=== PATIENT | male | born 2000 | race Caucasian/White ===

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

== ENCOUNTER 2022-09-18 11:34 | Emergency (ER) | payer MEDICAID, SELFPAY ==
[2022-09-18 11:38] VITALS: BP 134/74; PULSE 110; TEMP 37; O2SAT 98
--- NOTE | 2022-09-18 12:00 | ED.GENADUL_ITS ---
Discharge Plan Disposition Patient Disposition: Home Condition: Improving Discharge Details Chief Complaint: Nausea/Vomit/Diar Clinical Impression: Vomiting and diarrhea Primary Care Provider: Enedelia Moseley ED Provider: Luis E Whitman Home Meds and New Rx's Prescriptions: No Action polyethylene glycol 3350 [Miralax] 17 gram/dose powder 17 gm PO DAILY 90 Days Qty: 510 4RF Rx Instructions: do clean out - then taper daily dose according to stool consistency ondansetron 4 mg tablet,disintegrating 4 mg PO Q8H PRN PRN (Reason: nausea and vomiting) Qty: 6 0RF Discharge Instructions Instructions: Acute Diarrhea (ED) Additional Instructions: Please follow-up with your primary care physician. Please stay hydrated. Return to the emergency part for any worsening symptoms Medical Decision Making 22-year-old male presents with nausea vomiting diarrhea in the setting of eating pizza last night, nontoxic afebrile no active vomiting. Consider foodborne illness versus viral illness versus less likely cholecystitis or appendicitis; trial of fluids antiemetics loperamide. Basic labs. Reassess 14:11 patient resting comfortably feeling much better appetite is returned. No vomiting or diarrhea department. Home care instructions and return precautions given HPI General Date/Time Provider Initiated Documentation: 09/18/22 11:54 . HPI Narrative: 22-year-old male presents with nausea vomiting and diarrhea after eating pizza last night. Denies history of abdominal surgery denies abdominal pain. Related Data Home Medications Medication Instructions Recorded Confirmed polyethylene glycol 3350 17 17 gm PO DAILY 90 days #510 grams 10/21/18 09/18/22 gram/dose oral powder (Miralax) ondansetron 4 mg disintegrating 4 mg PO Q8H PRN PRN nausea and 01/27/19 09/18/22 tablet vomiting #6 tabs Previous Rx's Medication Instructions Recorded polyethylene glycol 3350 17 17 gm PO DAILY 90 days #510 grams 10/21/18 gram/dose oral powder (Miralax) ondansetron 4 mg disintegrating 4 mg PO Q8H PRN PRN nausea and 01/27/19 tablet vomiting #6 tabs Allergies Allergy/AdvReac Type Severity Reaction Status Date / Time oxycodone AdvReac Unknown Vomiting Verified 09/18/22 11:41 General Stated Complaint: Nausea/Vomit/Diar DEANGELO: 3 Review of Systems Narrative: Review of Systems Constitutional: negative Eyes: negative ENT: negative Cardiovascular: negative Respiratory: negative Gastrointestinal: Nausea vomiting diarrhea : negative Musculoskeletal: negative Skin: negative Neurologic: negative Psych: negative PFSH All Active Problems (Updated 09/18/22 @ 14:13 by Luis E Whitman MD) Vomiting and diarrhea (Acute) ADHD (attention deficit hyperactivity disorder) (Chronic) has IEP for developmental/assistive services 07/31/20-09/07/20; small group reading comprehension twice a week x 20 min Oppositional defiant disorder (Chronic) PTSD (post-traumatic stress disorder) (Chronic) followed by Dr. Cruz Sleep disturbances (Chronic) Urticaria (Chronic 09/19/15) ? viral vs strawberry exposurei- allergy eval 09/19 Medical History (Updated 09/18/22 @ 14:13 by Luis E Whitman MD) Asthma intermittent Encopresis Fracture of distal end of left radius (08/21/14) Mild intermittent asthma, uncomplicated Family History Other Diabetes PGM Personal history of malignant neoplasm mat great GM-colon Myocardial infarction mat great GM, PGF Stroke mat great GM and GF Asthma mat uncle Mother Asthma Sister Essential hypertension Social History Smoking/Tobacco Use Status: Current-Occasional Tobacco Type: e-cigarettes Second Hand Exposure: Yes Smoking risk assessment performed?: Yes Alcohol Intake: current Alcohol Intake frequency: holidays/special occasions only Drug use: Never Substance use type: does not use Education Level: high school Details: [employer] 11 grade Pets and animals: Yes Pets and animals: turtle(s) and other Details: Lizard Seatbelt use: always Helmet use: Yes Helmet use: never Water heater temp set <120 deg: Yes Fire extinguisher in home: Yes Carbon monox detector in home: Yes Firearms in home: No Do you feel safe at home: Yes Do you feel safe in your relationship?: Yes Exam Narrative Exam Narrative: Physical Examination General: alert, awake, cooperative, resting comfortably, no acute distress HEENT: normocephalic, atraumatic; PERRL, EOM intact, conjunctiva normal; no nasal discharge; moist mucous membranes, oral and pharyngeal mucosa normal, tolerating secretions Neck: supple, trachea midline; full ROM Chest: normal to inspection Respiratory: normal respiratory effort, speaking in full sentences, clear to auscultation, no wheezing, rales or rhonchi Cardiac: regular rate, regular rhythm, S1S2 intact, no murmurs rubs or gallops GI: abdomen soft, non-tender, non-distended; no palpable mass or h epatosplenomegaly Skin: no lesions, rashes or trauma appreciated Neuro: AAOx3, normal speech, moving all extremities Psych: Appropriate mood and affect Course Vital Signs Vital signs: Vital Signs Temperature 37.0 C 09/18/22 11:38 Pulse 110 H 09/18/22 11:38 Blood Pressure 134/74 09/18/22 11:38 Pulse Oximetry 98 09/18/22 11:38 Temperature 37.0 C 09/18/22 11:38 Temperature Source Oral 09/18/22 11:38 Pulse 110 H 09/18/22 11:38 Respiratory Effort Normal, Non-Labored 09/18/22 11:42 Blood Pressure 134/74 09/18/22 11:38 Blood Pressure Position Sitting 09/18/22 11:38 Pulse Oximetry 98 09/18/22 11:38 Oxygen Delivery Method Room Air 09/18/22 11:38 Oxygen Flow Rate 0 09/18/22 11:38 PAWSS Have you Been Recently Intoxicated or Drunk Within the Last 30 days?: No Have you Ever Experienced Previous Episodes of Alcohol Withdrawal?: No Have you ever Experienced Withdrawal Seizures?: No Have you ever Experienced Delirium Tremens(DT)s?: No Have you ever undergone Alcohol Rehabilitation Treatment (i.e, inpt ot outpatient treatment programs)?: No Have you ever Experienced Blackouts?: No Have you ever Combined Alcohol with other Downers within the last 90 days?: No Have you ever Combined Alcohol with any other Substance of Abuse during the last 90 days?: No Positive Blood Alcohol level on Presentation? [PCS.BAL]: No Evidence of Increased Autonomic Activity (i.e. HR>120, tremor, sweating, agitation, nausea)?: No Result: 0
[2022-09-18 12:22] LABS: Abs Immature Grans 0.05 10^3/uL (0.0-0.06); Absolute Basophil Count 0.03 10^3/uL (0.0-0.2); Absolute Neutrophil Count 14.36 10^3/uL (1.2-6.7); Basophils % 0.2; Eosinophils % 0.1; HCT 49.7 % (40.0-50.0); Immature Grans % 0.3; Lymphocytes % 3.7; MCH 30.3 pg (27.0-33.0); MCHC 34.2 % (32.0-36.0); MCV 89 fL (80-95); MPV 9.2 fL (8.0-11.0); Monocytes % 3.2; Neutrophils % 92.5; Platelet Count 239 10^3/uL (130-400); RBC 5.61 10^6/uL (4.36-5.78); RDW 12.9 % (11.8-14.1); RDW-SD 42.1 fL; WBC 15.52 10^3/uL (4.4-10.8)
[2022-09-18 12:23] LABS: Absolute Eosinophil Count 0.02 10^3/uL (0.0-0.7); Absolute Lymphocyte Count 0.57 10^3/uL (1.2-3.4)
[2022-09-18] MEDS: Loperamide 2 MG CAP 4 MG PO (12:33)
[2022-09-18] MEDS: Ondansetron 4 MG/2 ML VIAL IVP (12:33)
[2022-09-18] MEDS: Normal Saline 1,000 ML 1000 ML IV (12:34)
[2022-09-18 12:42] LABS: ALT 35 U/L (16-63); AST 19 U/L (15-37); Albumin 4.5 g/dL (3.4-5.0); Alkaline Phosphatase 149 U/L (46-116); BUN 18 mg/dL (7-18); Bilirubin, Total 0.9 mg/dL (0.2-1.0); CREATININE 0.9 mg/dL (0.70-1.30); Calcium 9.3 mg/dL (8.5-10.1); Chloride 102 mmol/L (98-107); Estimated GFR 125.39 (mL/min/1.73m2); Glucose 121 mg/dL (74-106); Potassium 3.7 mmol/L (3.5-5.1); Sodium 141 mmol/L (136-145); Total Protein 8.8 g/dL (6.4-8.2)
== END 2022-09-18 14:40 | disposition home or self-care (01) ==
PROVIDERS: Emergency Provider Emergency Medicine
DX: R19.7 Diarrhea, unspecified (principal); R11.10 Vomiting, unspecified
CPT/HCPCS: 36415; 80053; 96361; 96374; 99284; 85025; J2405

== ENCOUNTER 2023-12-18 10:30 | Emergency (ER) | payer SELFPAY ==
[2023-12-18 10:32] VITALS: BP 159/88; PULSE 97; RESP 12; TEMP 36.7; O2SAT 97
--- NOTE | 2023-12-18 10:47 | ED.GENADUL_ITS ---
Discharge Plan Disposition Patient Disposition: Home Condition: Stable Discharge Details Clinical Impression: Rash, Axilla abrasion, non-infected Primary Care Provider: Unknown,Unknown ED Provider: Ana Rosa Solis Home Meds and New Rx's Prescriptions: New clotrimazole 1 % cream 1 applic topical BID 28 Days Qty: 45 0RF Discharge Instructions Instructions: Fungal Skin Rash (DC) Additional Instructions: You were seen in the emergency department today for evaluation of a skin rash under your arm. In our department you have a full physical examination performed, and I suspect that you may be experiencing a fungal skin infection. The treatment for this is a topical cream which would place twice a day for the next 4 weeks. It can take a long time to treat fungal infections. In between cream please make sure that you are keeping the area protected, you can utilize a skin protective barrier ointment such as Vaseline, as well as gauze or dressings. If you notice that the rash is getting worse rather than better, you need to follow-up with your primary care provider to discuss next steps, and if you have evidence of infection at that time they may decide to put you on antibiotics. You can return to the emergency department if you develop a fever or chills, a large abscess, or any other symptoms that cause you concern. Thank you for allowing us to be part of your care. HPI General Date/Time Provider Initiated Documentation: 12/18/23 10:34 . Limitations to Documentation: no limitations . Information obtained by: patient and old records reviewed . HPI Narrative: HPI: This is a 23-year-old male patient presenting for evaluation of a left axillary rash. 2 days ago the patient noted irritation in his axilla, noted a red rash, states that he noticed that it hurts to put his deodorant on (uses old spice, no recent changes to deodorant or new soaps, lotions, etc.) he reports that he has not noted any rashes anywhere else on his body. No recent travel or insect exposure. States that he has not noted any fevers or chills, drainage from the area, swelling, but has noted a foul odor in his armpits. He feels that friction makes this worse, has tried placing cool cloths over to avoid friction. This is a nice lady complaint and the patient is otherwise without concerns today. Exam: Gen: Awake and alert, in no apparent distress HEENT: Non-icteric sclera Neck: Supple Lungs: No apparent respiratory distress, normal respiratory effort. CV: Appears well perfused Abdomen: Non-distended MSK: Moves 4 extremities without apparent limitation in ROM Skin: Visualized skin without rashes, cyanosis. The patient's left axilla has a red rash, semicircular in shape with central clearing and slightly raised border. The patient has no induration, surrounding redness, fluctuance. No palpable lymphadenopathy, no skin breaks. Neuro: Normal Gait, no obvious focal deficits or facial asymmetry. Speaks in full, clear sentences. Psych: Appropriate for situation. MDM: This is a 23-year-old patient, previously healthy presenting for evaluation of an axillary rash. My differential includes but is not limited to abrasion, fungal skin infection, early cellulitis. I see no evidence on my clinical examination for abscess, I considered allergic reaction, contact dermatitis, though the patient is without new exposure to suggest same. No recent tick bites or insect exposure to significantly increase my concern for tickborne illness. As this is an isolated complaint and the patient is reassuringly hemodynamically appropriate, I do think it is prudent to initiate conservative management with topical antifungals, good skin hygiene, and follow-up with the primary care provider's office. The patient was counseled as to the long duration of treatment for skin infections due to fungus, and I recommended that he follow-up with his primary care provider if he notes worsening redness, swelling, or development of purulent drainage. He understands he can follow-up with the emergency department with any fevers, abscesses, or other concerning symptoms. Clotrimazole 1% sent to pharmacy, and at this time, the patient has had a full medical evaluation and is safe for discharge to home. They are hemodynamically stable, ambulatory, and tolerating PO. They are understanding of the follow-up plan and return precautions. They left our facility without incident. Ana Rosa Solis MD Related Data Home Medications ?Medication ?Instructions ?Recorded ?Confirmed clotrimazole 1 % topical cream 1 applic topical BID 4 weeks #45 12/18/23 grams Previous Rx's ?Medication ?Instructions ?Recorded clotrimazole 1 % topical cream 1 applic topical BID 4 weeks #45 12/18/23 grams Allergies Allergy/AdvReac Type Severity Reaction Status Date / Time oxycodone AdvReac Unknown Vomiting Verified 12/18/23 10:36 General Stated Complaint: RashLesion DEANGELO: 4 Course Vital Signs Vital signs: Vital Signs Temperature 36.7 C 12/18/23 10:32 Pulse 97 H 12/18/23 10:32 Respiratory Rate 12 12/18/23 10:32 Blood Pressure 159/88 H 12/18/23 10:32 Pulse Oximetry 97 12/18/23 10:32 Temperature 36.7 C 12/18/23 10:32 Temperature Source Skin 12/18/23 10:32 Pulse 97 H 12/18/23 10:32 Respiratory Rate 12 12/18/23 10:32 Respiratory Effort Normal, Non-Labored 12/18/23 10:34 Blood Pressure 159/88 H 12/18/23 10:32 Blood Pressure Position Sitting 12/18/23 10:32 Pulse Oximetry 97 12/18/23 10:32 Oxygen Delivery Method Room Air 12/18/23 10:32 Oxygen Flow Rate 0 12/18/23 10:32 Pain Level 0 12/18/23 10:32 Comment pain when L arm rubs. 12/18/23 10:32 Medical Decision Making Quality:SDOH Health Related Social Needs: No Data to Display PFSH All Active Problems (Updated 12/18/23 @ 10:50 by Ana Rosa Solis MD) Axilla abrasion, non-infected (Acute) Rash (Acute) ADHD (attention deficit hyperactivity disorder) (Chronic) has IEP for developmental/assistive services 07/31/20-09/07/20; small group reading comprehension twice a week x 20 min Oppositional defiant disorder (Chronic) PTSD (post-traumatic stress disorder) (Chronic) followed by Dr. Cruz Sleep disturbances (Chronic) Urticaria (Chronic 09/19/15) ? viral vs strawberry exposurei- allergy eval 09/19 Medical History (Updated 12/18/23 @ 10:50 by Ana Rosa Solis MD) Asthma intermittent Encopresis Fracture of distal end of left radius (08/21/14) Mild intermittent asthma, uncomplicated Family History Other Diabetes PGM Personal history of malignant neoplasm mat great GM-colon Myocardial infarction mat great GM, PGF Stroke mat great GM and GF Asthma mat uncle Mother Asthma Sister Essential hypertension Social History Smoking/Tobacco Use Status: Current-Occasional Tobacco Type: e-cigarettes Second Hand Exposure: Yes Smoking risk assessment performed?: Yes Alcohol Intake: current Alcohol Intake frequency: holidays/special occasions only Drug use: Never Substance use type: does not use Housing: apartment Education Level: high school Details: [employer] 11 grade Pets and animals: Yes Pets and animals: turtle(s) and other Details: Lizard Seatbelt use: always Helmet use: Yes Helmet use: never Water heater temp set <120 deg: Yes Fire extinguisher in home: Yes Carbon monox detector in home: Yes Firearms in home: No Do you feel safe at home: Yes Do you feel safe in your relationship?: Yes PAWSS Have you Been Recently Intoxicated or Drunk Within the Last 30 days?: No Have you Ever Experienced Previous Episodes of Alcohol Withdrawal?: No Have you ever Experienced Withdrawal Seizures?: No Have you ever Experienced Delirium Tremens(DT)s?: No Have you ever undergone Alcohol Rehabilitation Treatment (i.e, inpt ot outpatient treatment programs)?: No Have you ever Experienced Blackouts?: No Have you ever Combined Alcohol with other Downers within the last 90 days?: No Have you ever Combined Alcohol with any other Substance of Abuse during the last 90 days?: No Positive Blood Alcohol level on Presentation? [PCS.BAL]: No Evidence of Increased Autonomic Activity (i.e. HR>120, tremor, sweating, agitation, nausea)?: No Result: 0
== END 2023-12-18 11:07 | disposition home or self-care (01) ==
PROVIDERS: Emergency Provider Emergency Medicine
DX: R21 Rash and other nonspecific skin eruption (principal); S40.812A Abrasion of left upper arm, initial encounter; X58.XXXA Exposure to other specified factors, initial encounter; F17.290 Nicotine dependence, other tobacco product, uncomplicated
CPT/HCPCS: 99283